=== PATIENT | male | born 1985 | race Caucasian/White ===

== ENCOUNTER 2017-01-30 11:47 | Emergency (ER) | payer SELFPAY ==
[~2017-01-30] VITALS: Ht 175.3 cm; Wt 74.8 kg
[~2017-01-30 11:47] MED LIST: BACTRIM DS TAB1 EACH PO; CEPHALEXIN500 MG PO; NORCO 5-325 TA1 EACH PO; PENICILLIN V P500 MG PO
== END 2017-01-30 12:11 | disposition home or self-care (01) ==
LOC: ED 11:47
DX: Z00.8 Encounter for other general examination (principal)

== ENCOUNTER 2018-07-08 00:25 | Emergency (ER) | payer SELFPAY ==
[~2018-07-08] VITALS: Ht 175.3 cm; Wt 74.8 kg
--- OUTSIDE RECORDS SUMMARY | 2018-07-08 00:28 | XMS ---
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 Silvana has no Care Guidelines for this patient. Clair VISIT COUNT (12 MO.) 1 [facility] TOTAL 1 NOTE: Visits indicate total known visits. ED/C VISIT TRACKING (12 MO.) 07/08/2018 00:25 [facility] [place] TYPE: Emergency COMPLAINT: - JAW PAIN INPATIENT VISIT TRACKING (12 MO.) No inpatient visits to display in this time frame [id number]
[2018-07-08] MEDS ORDERED: ACETAMINOPHEN-1 EAC1 PO (02:39)
[2018-07-08] MEDS ORDERED: CEPHALEXIN500 MG PO (02:39)
== END 2018-07-08 02:53 | disposition home or self-care (01) ==
LOC: ED 00:25
DX: S02.66XA Fracture of symphysis of mandible, initial encounter for closed fracture (principal); S01.512A Laceration without foreign body of oral cavity, initial encounter; Y00.XXXA Assault by blunt object, initial encounter; F17.200 Nicotine dependence, unspecified, uncomplicated
CPT/HCPCS: 70450; 70486; 96372; 99283-25; J1885

== ENCOUNTER 2018-07-09 19:17 | Emergency (ER) | payer SELFPAY ==
[~2018-07-09] VITALS: Ht 175.3 cm; Wt 74.8 kg
[~2018-07-09 19:17] MED LIST changes: +ACETAMINOPHEN-1 EAC1 PO
--- OUTSIDE RECORDS SUMMARY | 2018-07-09 19:20 | XMS ---
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 Silvana has no Care Guidelines for this patient. [facility] NOTE: Visits indicate total known visits. ED/C VISIT TRACKING (12 MO.) [facility] COMPLAINT: - JAW PAIN/INJURY 07/08/2018 00:25 [facility] [place] TYPE: Emergency COMPLAINT: - JAW PAIN INPATIENT VISIT TRACKING (12 MO.) No inpatient visits to display in this time frame [id number]
== END 2018-07-10 06:23 | disposition home or self-care (01) ==
LOC: ED 19:17
DX: S02.66XA Fracture of symphysis of mandible, initial encounter for closed fracture (principal); F17.200 Nicotine dependence, unspecified, uncomplicated; Y04.8XXA Assault by other bodily force, initial encounter
CPT/HCPCS: 96372; 99283-25; J1885

== ENCOUNTER 2018-10-06 07:19 | Emergency (ER) | payer OTHER ==
[~2018-10-06] VITALS: Ht 175.3 cm; Wt 72.6 kg
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
[2018-10-06] MEDS ORDERED: KEFLEX500 MG PO (07:41)
[2018-10-06] MEDS ORDERED: BACTRIM DS TAB1 EACH PO (07:41)
== END 2018-10-06 07:49 | disposition home or self-care (01) ==
LOC: ED 07:19
DX: T84.7XXA Infection and inflammatory reaction due to other internal orthopedic prosthetic devices, implants and grafts, initial encounter (principal); F17.200 Nicotine dependence, unspecified, uncomplicated
CPT/HCPCS: 99283

== ENCOUNTER 2023-03-26 15:50 | Emergency (ER) | payer OTHER ==
[~2023-03-26] VITALS: Ht 175.3 cm; Wt 74.9 kg
[~2023-03-26 15:50] MED LIST changes: +KEFLEX500 MG PO
[2023-03-26 20:20] VITALS: BP 119/86
== END 2023-03-26 20:20 | disposition home or self-care (01) ==
LOC: ED 15:50
DX: N50.811 Right testicular pain (principal); F17.200 Nicotine dependence, unspecified, uncomplicated; Z79.899 Other long term (current) drug therapy
CPT/HCPCS: 76870; 81001; 99284-25